=== PATIENT | female | born 1940 | race Caucasian/White ===

== ENCOUNTER → 2018-01-03 | Day surgery (SDC) | payer OTHER, MEDICARE ==
--- NOTE | 2017-12-31 15:27 | History & Physical Pre-Op ---
General Information and HPI History of Present Illness: Stacy is a 77-year-old female status post first MPJ fusion right foot with a nonunion and failed internal fixation. The patient has undergone an extended course of conservative care, including shoe gear and activity modification, rest , immobilization and NSAID therapy. None of this is yielded her any significant relief. The patient presents today for preoperative surgical consultation. The patient was referred to our office from Ernesto Engle DPM. Past History Medical History Cardiovascular: hypertension Surgical History Pertinent Surgical History: lumpectomy Review of Systems Review of Systems: Unremarkable except for that noted in history of present illness Exam & Diagnostic Data Physical Exam: Lungs clear bilaterally. Heart sounds rate and rhythm regular. Lower extremity physical exam demonstrates intact pedal pulses bilaterally. Pulses dorsalis pedis and posterior tibial arteries are palpable bilaterally. Patient without any sensory motor deficits. Deep tendon reflexes grossly intact. Patient noted to have significant pain with palpation to the right first metatarsophalangeal joint. 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 A lengthy discussion reviewing both surgical and conservative options was held the patient at bedside and the patient elected to go forward with surgery despite the risks. As Ranked By This Provider Problem List: 1. Displacement of other internal orthopedic devices, implants and grafts, initial encounter Attending MD Review Statement Attending Statement Attending MD Statement: examined this patient
[~2018-01-03] VITALS: Ht 154.9 cm; Wt 72.6 kg
--- NOTE | 2018-01-03 10:57 | Operative Report ---
Operative/Inv Procedure Report Surgery Date: 01/03/18 Name of Procedure: 1 removal of field infected hardware right foot 2 bone biopsy right foot 3 washout right foot Pre-Operative Diagnosis: 1 failed, infected hardware right foot 2 suspected osteomyelitis right foot Post-Operative Diagnosis: The same Estimated Blood Loss: scant Surgeon/Geriatric Social Work Professor: Chele Aguilera DPM, DPM Anesthesia: moderate sedation, block Operative/Procedure Note Note: After obtaining informed consent the patient was brought to the operating room and placed on the operating table in the supine position. The patient isn't securely fastened to the operating table utilizing safety belt. After administration of IV sedation, 10 mL of 0.5% Marcaine plain was infiltrated about the patient's right ankle. A well-padded ankle tourniquet was placed about the patient's right lower extremity. The right foot and ankle were scrubbed, prepped and draped in usual aseptic manner. The right lower extremity is elevated to examine to limb, which point the ankle tourniquet inflated 250 mmHg. Attention directed dorsal foot where 6 cm incision was made overlying the prior incision site. Dissection was then carried down to the hardware which was noted on the capture structures. This was then removed and passed from the operative field. The hardware was noted to be unstable with a nonunion at the first metatarsophalangeal joint. The interfrag screw was removed and passed from the operative field was sent a specimen for microbiologic inspection. Necrotic bone identified at the base proximal phalanx and the first metatarsal head was also harvested and sent a specimen for microbiologic and pathologic inspection. Nipple was then irrigated with copious Svensson normal sterile saline. The deep tissues were then reapproximated with 3-0 Vicryl and the subtenons tissues reports a 4-0 Vicryl. Skin is reapproximated 3-0 nylon. Incision was dressed with Xeroform, 4 x 4's, Kerlix and Stephon wrap. Patient is noted tolerate both procedure and anesthesia well and the patient was transported from the operating room to recovery with vital signs stable.
== END ==
LOC: STS 02:16
DX: T84.428A Displacement of other internal orthopedic devices, implants and grafts, initial encounter (principal); M87.874 Other osteonecrosis, right foot; I10 Essential (primary) hypertension; Z87.891 Personal history of nicotine dependence
CPT/HCPCS: 87070; 87075; 87184; J2001; J3490